=== PATIENT | female | born 1980 | race Two or more races ===

== ENCOUNTER 2018-01-26 11:44 | Emergency (ER) | payer OTHER ==
[~2018-01-26] VITALS: Ht 160 cm; Wt 81.7 kg
[~2018-01-26 11:44] MED LIST: Bactrim Ds Tab1 EACH PO; Benadryl 50 mg50 MG PO; Budeprion Xl300 MG PO; Cleocin HCl150 MG PO; IBUP800 PO; Keflex500 MG PO; Klonopin1 MG PO; LITH300C PO; METO10 PO; OXYC5 PO; PRED20 PO
[2018-01-26] MEDS ORDERED: Zofran Odt4 MG SL (15:37)
== END 2018-01-26 15:46 | disposition home or self-care (01) ==
LOC: ER 11:44
DX: K52.9 Noninfective gastroenteritis and colitis, unspecified (principal); F17.200 Nicotine dependence, unspecified, uncomplicated; Z91.030 Bee allergy status; Z88.5 Allergy status to narcotic agent
CPT/HCPCS: 99283

== ENCOUNTER 2018-12-16 18:24 | Emergency (ER) | payer OTHER ==
[~2018-12-16] VITALS: Ht 157.5 cm; Wt 81.7 kg
[~2018-12-16 18:24] MED LIST changes: +Zofran Odt4 MG SL
[2018-12-16] MEDS ORDERED: METPRE4DP PO (18:51)
[2018-12-16] MEDS ORDERED: Pepcid40 MG PO (18:51)
[2018-12-16] MEDS ORDERED: DIPH50 PO (18:51)
== END 2018-12-16 19:06 | disposition home or self-care (01) ==
LOC: ER 18:24
DX: T78.3XXA Angioneurotic edema, initial encounter (principal)
CPT/HCPCS: 99283; Q0163